=== PATIENT | male | born 2000 | race Caucasian/White ===

== ENCOUNTER 2021-10-25 19:58 | Emergency (ER) | payer OTHER, SELFPAY ==
--- NOTE | ~2021-10-25 | CT_ITS ---
Indication: Injury EXAMINATION: CT of the brain and CT facial bones. This CT examination was performed using dose optimization techniques as appropriate, variously including the following: *Automated exposure control *Adjustment of mA and/or kV according to patient size (this includes techniques or standardized protocols for targeted exams where dose is matched to indication/reason for exam; i.e. extremities or head) *Use of iterative reconstruction technique. Radiation dose 742 and 277. Axial imaging with coronal and sagittal reformatted images. CT brain; There is no midline shift. There is no mass effect. There is no hemorrhage. The basal cisterns appear patent. The posterior fossa is grossly within normal limits. There is no extra-axial collection. Martinez-white matter is maintained. No fracture is seen on the bone windows. CT facial bones; No fracture. CT/CT facial bones wo con IMPRESSION: Negative acute noncontrast CT of the brain. No fracture is seen of the facial bones.
--- NOTE | ~2021-10-25 | CT_ITS ---
Indication: Injury EXAMINATION: CT of the brain and CT facial bones. This CT examination was performed using dose optimization techniques as appropriate, variously including the following: *Automated exposure control *Adjustment of mA and/or kV according to patient size (this includes techniques or standardized protocols for targeted exams where dose is matched to indication/reason for exam; i.e. extremities or head) *Use of iterative reconstruction technique. Radiation dose 742 and 277. Axial imaging with coronal and sagittal reformatted images. CT brain; There is no midline shift. There is no mass effect. There is no hemorrhage. The basal cisterns appear patent. The posterior fossa is grossly within normal limits. There is no extra-axial collection. Martinez-white matter is maintained. No fracture is seen on the bone windows. CT facial bones; No fracture. CT/CT head/brain wo con IMPRESSION: Negative acute noncontrast CT of the brain. No fracture is seen of the facial bones.
[2021-10-25 20:37] VITALS: BP 147/80; PULSE 82; RESP 16; TEMP 37.6; O2SAT 99; BMI 23.7
--- NOTE | 2021-10-25 20:58 | ED.FALL ---
HPI - Fall General Chief Complaint: Fall Stated Complaint: head injury Time Seen by Provider: 10/25/21 20:38 Source: patient Mode of arrival: ambulatory Limitations: no limitations History of Present Illness HPI Narrative: 21-year-old male who presents emergency department for evaluation of head injury and facial injury that occurred this morning at around 02:00 hours. 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 He states that he was drinking last night with friends. He states that he stepped off a curb, tripped and fell landing on the right side of his face. He denied any head injury. He states that he slept at his friend's house when he woke up this morning he had a headache. He states that his whole head was throbbing and the pain was constant and approximately 4/10. He had no nausea or vomiting. He had no numbness or weakness. The patient states that he slept most of the day and when he woke up around 16:30 hours the right side of his face was swollen any again had a throbbing headache. He went to [facility] but they are closing and advised him to go to the emergency department for evaluation. At the time of my evaluation the patient is awake, alert, very pleasant and cooperative. He answers all questions appropriately. He states that he has only a very mild headache and mild pain in the right side of his face. He has had no nausea, vomiting or change in his vision. States that his tetanus vaccination is up-to-date. Related Data Allergies Allergy/AdvReac Type Severity Reaction Status Date / Time Penicillins AdvReac Rash Verified 10/25/21 20:37 Review of Systems Review of Systems: Yes all other systems are reviewed and are negative [facility] Past Medical History [facility] Narrative: Past medical history: Sleep apnea. Past surgical history: Deviated septum repair, testicular torsion repair. Social history: He is a college student at the [employer]. Denies tobacco use. He does drink occasionally. He does smoke marijuana. Medical History (Updated 10/25/21 @ 22:16 by Regan Huber MD) No known health problems Social History Social History Advance Directives: No Advance Directives Information Provided: No Physical Exam Vital Signs: Vital Signs: Last Vital Signs Temp 99.6 F 10/25/21 20:37 Pulse 96 10/25/21 21:54 Resp 16 04/02/22 21:54 BP 152/78 H 10/25/21 21:54 Pulse Ox 99 10/25/21 21:54 BMI result Body Mass Index 23.7 Const: Other: Very pleasant and cooperative male patient, awake, alert, answers all questions appropriately. Obvious right-sided facial trauma. HEENT: Other: The patient has right sided facial abrasions to his forehead and right cheek, the patient has right periorbital swelling increased in the inferior margin with right lateral and inferior orbital rim tenderness, he also has tenderness with palpation of the right zygomatic arch with no tenderness palpation over his mandible, he is able to open and close his jaw without any difficulty. Ears: external ears normal General nose exam: Normal external nose present Mouth: Normal oral and palatal mucosa present Throat: Yes posterior oropharynx normal Eyes: General: appearance normal, both eyes and all related structures Pupils: Equal, round and reactive pupils present Neck: Neck: Yes normal visual inspection, Yes no lymphadenopathy, Yes trachea midline and Yes supple Chest: Chest palpation & inspection: normal inspection of the chest and normal palpation of entire chest wall Resp: Effort & Inspection: normal respiratory effort and able to speak in complete sentences Auscultation: clear to auscultation bilaterally Cardio: Rate: regular rate Rhythm: regular rhythm Heart sounds: S1 normal heart sound present, S2 normal heart sound present and no murmurs GI: Inspection: Yes normal to inspection Palpation (GI): Soft to palpation, nontender and no guarding Auscultation: normal bowel sounds : General: Yes no CVA tenderness Back/Spine/Pelvis: Back: no CVA tenderness Skin: General skin exam: no rashes or lesions noted Neuro: Cranial nerves: Yes CN's II-XII intact bilaterally and Yes Equal, round and reactive pupils present Cognition (Neuro): normal cognition Motor exam (neuro): 5/5 motor strength present throughout Extrem: General: Yes normal to inspection Psych: Appearance: grossly normal Speech and movement: Normal speech and movement present Affect: normal affect Attitude: cooperative Thought process: Normal thought process present Thought content: Normal thought content present Course Course Course Narrative: 21-year-old male who presents emergency department for evaluation for a trip and fall off a curb at 0200 hours, patient had no loss of consciousness but has had an intermittent headache and right facial pain since fall. Physical examination did reveal obvious abrasions and trauma to the right side of his face with tenderness palpation of the right lateral, inferior orbit and zygomatic arch. Patient's exam was otherwise unremarkable. Patient's abrasions will be dressed with bacitracin. 2213: Radiology evaluation: CT scan of the head revealed no acute fracture or bleed. CT scan of the facial bones revealed no acute fracture. The patient was advised to take Tylenol and ibuprofen for his pain. He was also advised to apply bacitracin twice a day for 2 weeks to his abrasions. He was given printed and verbal instructions and discharged home. Discharge Plan Discharge Clinical Impression: Fall Qualifiers: Encounter type: initial encounter Qualified Code(s): W19.XXXA - Unspecified fall, initial encounter Abrasion of face Qualifiers: Encounter type: initial encounter Qualified Code(s): S00.81XA - Abrasion of other part of head, initial encounter Contusion of face Qualifiers: Encounter type: initial encounter Qualified Code(s): S00.83XA - Contusion of other part of head, initial encounter CHI (closed head injury) Qualifiers: Encounter type: initial encounter Qualified Code(s): S09.90XA - Unspecified injury of head, initial encounter Patient Disposition: Home, Self-Care Instructions: Head Injury (ED), Contusion in Adults (ED), Abrasion (ED) Additional Instructions: The CT scan of your head revealed no skull fracture/broken bones and no bleeding in the brain. The CT scan of the facial bones revealed no fractures/broken bones. Use ice on your face for 10 minutes 4 to 6 times a day to help reduce the swelling. Apply bacitracin to the abrasions on your face twice a day for 2 weeks. Take ibuprofen 200 mg pills, 3 pills every 6 hours as needed for pain. Take Tylenol (acetaminophen) 500 mg pills, 2 pills every 4 to 6 hours as needed for pain. Follow-up with your doctor in 2 days. Please return to the emergency department if your symptoms get worse or if you develop any symptoms that are concerning to you.
[2021-10-25] MEDS: Bacitracin Oint 0.9 GM PACKET 1 APPL TOPICAL (21:51)
[2021-10-25 21:54] VITALS: BP 152/78; PULSE 96; RESP 16; O2SAT 99
[2021-10-25 22:31] VITALS: BP 150/68; PULSE 66; RESP 16; O2SAT 99
== END 2021-10-25 22:36 | disposition home or self-care (01) ==
PROVIDERS: Emergency Provider Emergency Medicine Emergency Medical Services
DX: S00.81XA Abrasion of other part of head, initial encounter (principal); S00.83XA Contusion of other part of head, initial encounter; S09.90XA Unspecified injury of head, initial encounter; W10.1XXA Fall (on)(from) sidewalk curb, initial encounter; Y93.01 Activity, walking, marching and hiking; Y92.214 College as the place of occurrence of the external cause; Y99.8 Other external cause status
CPT/HCPCS: 70450; 70486; 99284